=== PATIENT | male | born 1955 | race Caucasian/White ===

== ENCOUNTER 2024-10-15 11:02 | Emergency (ER) | payer OTHER, SELFPAY ==
[2024-10-15 11:07] VITALS: BP 174/91
[2024-10-15 11:31] VITALS: BP 180/96; BMI 24.4
--- NOTE | 2024-10-15 11:39 | ED.GENMED ---
History of Present Illness
General
Chief Complaint: Dizziness
Source: patient
Exam Limitations: none
Time Seen by Provider: 10/15/24 11:22
Nursing documentation reviewed up to this point in time: agreed with
History of Present Illness
History of Present Illness:
Patient presents to ED secondary to persistent neck and upper back pain, over the past 1 month. Patient has been evaluated by his primary care physician and had an outpatient x-ray performed, which revealed arthritis. Physical therapy has been
recommended by her primary care physician. Patient has gone through multiple sessions, with mild improvement in symptoms. However, during last session, patient felt worse, and has subsequently canceled his next appointment. Denies fever or
chills. Denies headache. Denies loss of sensation or weakness. Denies difficulty with ambulation. Patient has been taking Tylenol without significant improvement symptoms. Of note, patient states that his pain started, 1 day after receiving
outpatient colonoscopy, and is wondering whether or not procedure may be causing his pain.
Review of Systems
Review of Systems
Allergies reviewed?: Yes
All Other Systems: ROS reviewed and negative except as documented in HPI and ROS
Constitutional: Reports no symptoms; Denies fever
EENT: Reports no symptoms
Respiratory: Reports no symptoms
Cardiac: Reports no symptoms
ABD/GI: Reports no symptoms
Musculoskeletal: Reports neck pain and back pain
Skin: Reports no symptoms
Neurological: Reports no symptoms; Denies dizzy, weakness or numbness
Phy Exam
Physical Exam
Physical Exam:
Physical Exam
General: no apparent distress, not acutely ill. afebrile
Head: nc/at. eomi
Neck: supple. normal range of motion. moderate tenderness to palpation over left lateral neck/upper back with muscle spasm. no midline tenderness
Heart: s1/s2 regular rate and rhythm.
Lungs: no acute respiratory distress. clear bilaterally
Abdomen: normal bowel sounds. not tender.
Neuro: alert and oriented x 3. no focal neurological deficits
Skin: no rash
Psychiatric: well kept. interactive and cooperative
Extremities: no edema. no calf tenderness.
Course
Orders/Labs/Results
Orders:
Orders
10/15/24 11:17
ECG [Electrocardiogram (*1)] Urgent
Reason for Study: Vertigo / Dizzy
EKG- Treatment ONCE
10/15/24 12:03
Dexamethasone Pf [Decadron] 10 mg PO NOW STA
Tramadol HCl [Ultram] 50 mg PO NOW STA
10/15/24 12:04
CT Cervical Spine W/o Iv Contr Urgent
Comment:
Reason For Exam: neck pain
Vital Signs
Initial and Last Documented VS:
Initial Vital Signs
Temp Pulse Resp BP Pulse Ox
97.9 F 74 20 174/91 99
10/15/24 11:07 10/15/24 11:07 10/15/24 11:07 10/15/24 11:07 10/15/24 11:07
Last Documented Vital Signs
Temp Pulse Resp BP Pulse Ox
97.9 F 68 13 168/95 97
10/15/24 11:07 10/15/24 14:25 10/15/24 14:25 10/15/24 14:25 10/15/24 14:25
MDM/Problems Addressed
MDM/Problems Addressed:
CT cervical spine report reviewed and discussed with patient. Patient reports significant improvement symptoms after treatment. Patient remains otherwise afebrile, hemodynamically stable, and neurologically intact. As such, after discussion,
decision made to discharge patient home at this time, with recommendation to apply warm compress to his neck, along with prescribed medication, as well as continual physical therapy as an outpatient. In addition, recommended PCP follow-up as an
outpatient, including potential MRI cervical spine, if symptoms persist. Patient expresses understanding at time of discharge.
*EKG
Interpreted by ED Provider?: Yes
EKG Intrepretation Date: 10/15/24
Heart Rate: 71
Rate: normal
Rhythm: sinus
[place]: normal axis
Interval: normal interval and first degree heart block
*Critical Care Note
Total Time (30-74mins, 75-104mins- exclusive of procedures): Not Applicable
ED Attending Note
-
Portions of this chart may have been created with voice recognition software.� Occasional wrong word or��sound alike� substitutions may have occurred due to the inherent limitations of voice recognition software.
Discharge Plan
Departure
Patient Disposition: Home (Routine Discharge)
Date of Disposition: 10/15/24
Time of Disposition: 15:03
Patient with high blood pressure during this ER visit?: Yes
Condition: Fair
Discharge Problem:
Neck pain
Instructions: Neck pain - ED discharge instructions
Prescriptions:
New
tramadol 50 mg tablet
50 mg PO Q8H PRN (Reason: Pain) Qty: 20 0RF
methylprednisolone [Medrol ([place])] 4 mg tablets,dose pack
4 mg PO DAILY Qty: 21 0RF
Referrals:
Eduard Rushing MD [Family Provider] -
Activity Restrictions/Additional Instructions:
As discussed, please follow-up with your primary care physician for continual evaluation and treatment, including potential MRI cervical spine as outpatient, if symptoms persist. Your prescriptions have been sent electronically to [facility]
in [place].
Interventions
Interventions:
*Risk Screen - Suicide Last Done: 10/15/24 11:07
*General Assessment Last Done: 10/15/24 11:07
*Neglect/Abuse Screening Last Done: 10/15/24 11:07
*ED- Fall Risk Assessment Last Done: 10/15/24 11:32
*ED COVID-19 Vaccine History Last Done: 10/15/24 11:32
*Nursing Disposition Last Done: 10/15/24 15:38
ED- Neurological Assessment Last Done: 10/15/24 11:31
ED- Cardiac Assessment Last Done: 10/15/24 11:38
Discharge Date and Time
Discharge Date/Time: 10/15/24 15:39
Print Language: GREEK
[2024-10-15 12:00] VITALS: BP 162/134
[2024-10-15] MEDS: ULTRAM 50 MG PO (12:14)
[2024-10-15] MEDS: DECADRON 10 MG PO (12:14)
[2024-10-15 14:25] VITALS: BP 168/95
== END 2024-10-15 15:39 | disposition home or self-care (01) ==
LOC: EMR 11:02
PROVIDERS: EMERGENCY PHYSICIAN Emergency Medicine; FAMILY PHYSICIAN Family Medicine
DX: M54.2 Cervicalgia (principal); M54.89 Other dorsalgia; R42 Dizziness and giddiness; M62.830 Muscle spasm of back; R51.9 Headache, unspecified; M19.90 Unspecified osteoarthritis, unspecified site; I44.0 Atrioventricular block, first degree; R56.9 Unspecified convulsions; I10 Essential (primary) hypertension; E78.5 Hyperlipidemia, unspecified
CPT/HCPCS: 99284; 72125; 93005

== ENCOUNTER 2024-11-18 10:16 | Emergency (ER) | payer OTHER, SELFPAY ==
[2024-11-18 10:34] VITALS: BP 121/86
[2024-11-18 12:05] VITALS: BP 124/81
--- NOTE | 2024-11-18 13:08 | ED.MUSCINJ ---
HPI-Injury
General
Chief Complaint: Musculo-Skeletal Complaint
Source: patient and previous hospital records
Exam Limitations: none
Time Seen by Provider: 11/18/24 11:49
Nursing documentation reviewed up to this point in time: agreed with
History of Present Illness-Injury
Initial Injury comments:
69-year-old male with history of HTN, HLD presents for left upper back pain, left neck pain and states intermittent left lower back pain. He was seen here in the ED on 10/15 having had symptoms for about a month which started the day after he had a
colonoscopy. He had been doing physical therapy but that made the pain worse so he stopped. He denies weakness in his arms
At his 10/15 visit he had a CAT scan of the cervical spine and was given Decadron 10 mg , Rx for Medrol Dosepak and discharged with prescription for Tramadol 50 mg every 8 hours to follow-up with PCP
He saw his PCP the following week and has an MRI of the neck scheduled for 12/13. He states he cannot tolerate the tramadol 50 mg so he has only been taking half of a tablet at bedtime only, it makes him nauseous, 'it does not agree with me.' He
does state he had some relief while taking the Medrol Dosepak.
He denies weakness in his arms, pain in the left side of his neck is worse states his head to the right, there is a definite trigger point he can point to just medial to the mid scapular area, he states his left lower back pain is intermittent.
Past History
Past History
ED Past Medical History: HTN and Hypercholesterolemia
Social History
Tobacco: Non-smoker
Alcohol: None
Personal: Single
Living: alone
Review of Systems
Review of Systems
Allergies reviewed?: Yes
All Other Systems: ROS reviewed and negative except as documented in HPI and ROS
Constitutional: Denies fever
Respiratory: Denies trouble breathing
Cardiac: Denies chest pain
ABD/GI: Denies abdominal pain
: Denies dysuria, frequency, incontinence, difficulty voiding or urgency
Musculoskeletal: Reports neck pain and back pain
Skin: Reports no symptoms
Neurological: Denies headache, weakness or numbness
Phy Exam
Physical Exam
Physical Exam:
GENERAL: No acute distress. A&Ox3.
CONSTITUTIONAL: Afebrile.
EYES: clear, conjunctivae normal
ENMT: moist mucus membranes
RESPIRATORY: Regular respirations, nonlabored, lungs clear.
CARDIOVASCULAR: Regular rate and rhythm, no murmurs, no rubs.
GI: Soft, nontender, normal BS
MUSCULOSKELETAL: Mild tenderness palpation left lateral neck soft tissue, full range of motion of neck, pain aggravated with turning to the opposite side. There is a definite trigger point just medial to the left mid scapular area with palpable
muscle spasm. The rest of the back is nontender to palpation. Patient has full range of motion. Moves with ease. Well perfused.
SKIN: Warm, dry, pink
PSYCH: Normal mood and affect. Well kept, interactive and appropriate
NEUROLOGIC: Awake, alert and oriented. No focal neurological deficits. Strength equal throughout.
MDM/Problems Addressed
Differential Diagnosis Includes:
trigger point spasm, neck muscle strain
MDM/Problems Addressed:
69-year-old male with history of HTN, HLD presents for left upper back pain, left neck pain and states intermittent left lower back pain. He was seen here in the ED on 10/15 having had symptoms for about a month which started the day after he had a
colonoscopy. He had been doing physical therapy but that made the pain worse so he stopped. He denies weakness in his arms
At his 10/15 visit he had a CAT scan of the cervical spine and was given Decadron 10 mg , Rx for Medrol Dosepak and discharged with prescription for Tramadol 50 mg every 8 hours to follow-up with PCP
He saw his PCP the following week and has an MRI of the neck scheduled for 12/13. He states he cannot tolerate the tramadol 50 mg so he has only been taking half of a tablet at bedtime only, it makes him nauseous, 'it does not agree with me.' He
does state he had some relief while taking the Medrol Dosepak.
He denies weakness in his arms, pain in the left side of his neck is worse states his head to the right, there is a definite trigger point he can point to just medial to the mid scapular area, he states his left lower back pain is intermittent.
No infectious symptoms
Pt is asking for referral for [employer]
Procedure: Pt sitting, leaning forward with arms on table, left upper back just medial to scapula cleansed with alcohol wipe, trigger point identified and injected with 4 ml Bupivacaine mixed with 1 ml of 1% Lidocaine.
1:45 p.m.
Pt having much relief of pain in area of trigger point. States '50% better.' Moving around well comfortably, full ROM of neck and back.
Rx for prednisone sent to his pharmacy
He requests referral to [employer] as his first cousin has RA
He will continue Tramadol with food to avoid stomach upset
MRI scheduled for 12/13
*Critical Care Note
Total Time (30-74mins, 75-104mins- exclusive of procedures): Not Applicable
ED Attending Note
-
Portions of this chart may have been created with voice recognition software.� Occasional wrong word or��sound alike� substitutions may have occurred due to the inherent limitations of voice recognition software.
Discharge Plan
Departure
Patient Disposition: Home (Routine Discharge)
Date of Disposition: 11/18/24
Time of Disposition: 13:42
Patient with high blood pressure during this ER visit?: No
Condition: Good
Discharge Problem:
Trigger point of thoracic region, Neck muscle strain
Instructions: Trigger Point Injection, Neck pain - ED discharge instructions
Prescriptions:
New
prednisone 20 mg tablet
40 mg PO DAILY Qty: 8 0RF
No Action
tramadol 50 mg tablet
50 mg PO Q8H PRN (Reason: Pain) Qty: 20 0RF
methylprednisolone [Medrol ([place])] 4 mg tablets,dose pack
4 mg PO DAILY Qty: 21 0RF
Referrals:
Eduard Rushing MD [Family Provider] - Keep scheduled appt
Activity Restrictions/Additional Instructions:
As we discussed, you had a 'trigger point muscle spasm' in the left upper back.
You also have a strain of the left neck muscle.
I sent a prescription to your pharmacy for prednisone, take 40 mg daily for 4 days. This should help with the inflammation and pain
If the pain in the left upper back area where I injected returns, hot water from the shower, heating pad, gentle massage, put a tennis ball on the floor and roll on it at the point of pain to massage the area.
Keep your appoint for your MRI and follow-up with your family doctor ask
Here is the name of a Video Camera Operator:
Natailia Parra
[address]
[place] [address]

Interventions
Interventions:
*Risk Screen - Suicide Last Done: 11/18/24 10:34
*General Assessment Last Done: 11/18/24 10:34
*Neglect/Abuse Screening Last Done: 11/18/24 10:34
*ED- Fall Risk Assessment Last Done: 11/18/24 10:47
*ED COVID-19 Vaccine History Last Done: 11/18/24 10:47
*Nursing Disposition Last Done: 11/18/24 13:58
ED-Musculoskeletal Assessment Last Done: 11/18/24 10:47
Discharge Date and Time
Discharge Date/Time: 11/18/24 13:59
Print Language: [email or web address]
[2024-11-18 13:58] VITALS: BP 131/74
== END 2024-11-18 13:59 | disposition home or self-care (01) ==
LOC: EMR 10:16
PROVIDERS: EMERGENCY PHYSICIAN Emergency Medicine; FAMILY PHYSICIAN Family Medicine
DX: S16.1XXA Strain of muscle, fascia and tendon at neck level, initial encounter (principal); M54.6 Pain in thoracic spine; M54.50 Low back pain, unspecified; X58.XXXA Exposure to other specified factors, initial encounter; I10 Essential (primary) hypertension; E78.00 Pure hypercholesterolemia, unspecified
CPT/HCPCS: 20552; 99284

== ENCOUNTER → 2024-12-16 10:27 | Outpatient (REF) | payer OTHER, SELFPAY | LOC: RAD 10:27 | PROVIDERS: ATTENDING PHYSICIAN Family Medicine | DX: M54.2 Cervicalgia (principal); G89.29 Other chronic pain | CPT/HCPCS: 72125 ==

== ENCOUNTER → 2025-04-28 10:56 | Outpatient (REF) | payer OTHER, SELFPAY | LOC: RAD 10:56 | PROVIDERS: ATTENDING PHYSICIAN Family Medicine | DX: Z98.2 Presence of cerebrospinal fluid drainage device (principal) | CPT/HCPCS: 70450 ==